=== PATIENT | male | born 1975 | race Two or more races ===

== ENCOUNTER 2018-06-13 11:45 | Emergency (ER) | payer OTHER ==
[~2018-06-13] VITALS: Ht 170.2 cm; Wt 645.5 kg
[~2018-06-13 11:45] MED LIST: ESG PO; IMITREX50 MG PO; ZOC10 PO
[2018-06-13 11:59] VITALS: BP 126/97; Ht 170.2 cm; Wt 645.5 kg
== END 2018-06-13 13:49 | disposition home or self-care (01) ==
LOC: ED 11:45
DX: M54.41 Lumbago with sciatica, right side (principal); M62.830 Muscle spasm of back; J45.909 Unspecified asthma, uncomplicated; G43.909 Migraine, unspecified, not intractable, without status migrainosus; Z88.6 Allergy status to analgesic agent